=== PATIENT | male | born 1975 | race Caucasian/White ===

== ENCOUNTER 2021-08-08 13:09 | Emergency (ER) | payer SELFPAY ==
[2021-08-08 13:10] VITALS: BP 127/79; PULSE 75; RESP 18; TEMP 36.9; O2SAT 98; BMI 26.3
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
[2021-08-08] MEDS: Ketorolac 60 MG/2 ML Vial IM (14:14)
[2021-08-08] MEDS: Orphenadrine 60 MG/2 ML Ampul IM (14:15)
[2021-08-08 14:37] VITALS: BP 108/74; PULSE 62; RESP 15; O2SAT 98
== END 2021-08-08 14:38 | disposition home or self-care (01) ==
LOC: ED 14:07
PROVIDERS: Emergency Provider Emergency Medicine; Visit Provider Emergency Medicine
DX: S39.012A Strain of muscle, fascia and tendon of lower back, initial encounter (principal); M54.16 Radiculopathy, lumbar region; X50.1XXA Overexertion from prolonged static or awkward postures, initial encounter; Y93.E1 Activity, personal bathing and showering; F17.210 Nicotine dependence, cigarettes, uncomplicated
CPT/HCPCS: 96372; 99282

== ENCOUNTER → 2022-04-05 | Outpatient (CLI) | payer MEDICAID, SELFPAY ==
--- NOTE | 2022-04-05 07:00 | MRI_ITS ---
STUDY: MRI RIGHT KNEE REASON FOR EXAM: Male, 46 years old. RIGHT knee pain, decreased ROM, ?ACL/PCL tear TECHNIQUE: Standardized fat and water weighted pulse sequences were obtained in all 3 orthogonal planes. COMPARISON: X-ray of the right knee dated DECEMBER 07, 2014. MRI of the right knee dated December 29, 2014 FINDINGS: There is intra-substance myxoid degeneration of the posterior horn of the medial meniscus, but without a demonstrated meniscal tear. Normal anterior horn and body of the medial meniscus. There is diffuse, less than 50% thickness articular cartilage loss of the medial femorotibial compartment. A 2.26 cm developing osteochondral defect is present in the inner half of the medial femoral condyle with mild cortical irregularity and spurring and thinning of the overlying cartilage. There is also a crescentic subcortical sclerotic line in the region of developing osteochondral defect. Normal medial collateral ligamentous complex (MCL). Normal distal semimembranosus, gracilis and semitendinosus tendons. Normal lateral meniscus. Normal hyaline cartilage of the lateral femorotibial compartment. Normal lateral femoral condyle and tibial plateau. Normal proximal tibiofibular articulation. Normal lateral collateral (fibular) ligament. Normal popliteus tendon. Normal biceps femoris tendon. Normal anterior cruciate ligament (ACL). Normal posterior cruciate ligament (PCL). Normal congruent patellofemoral articulation. There is mild fissuring and thinning of the cartilage of the lateral patellar facet. Normal remaining cartilage of the patellofemoral compartment. Normal medial and lateral patellar retinaculum. Normal quadriceps tendon. Normal patellar tendon. Normal Hoffa''s fat pad. Small joint effusion noted. Reidentification of a 3.56 cm benign osteochondroma extending from the posterior aspect of the medial tibial plateau. A small loose body is present in the posterior aspect of the lateral tibial plateau. The soft tissues are unremarkable. The otherwise visualized osseous structures are unremarkable. MRI/Lower Ext Joint Only (Routine) IMPRESSION: 1. Intrasubstance degeneration of the posterior horn of medial meniscus without a tear 2. Mild fissuring and thinning of the cartilage over the lateral patellar facet 3. Small joint effusion 4. Reidentification of a 3.56 cm benign osteochondroma extending from the posterior aspect of the medial tibial plateau. 5. A 2.26 cm developing osteochondral defect is present in the inner half of the medial femoral condyle with mild cortical irregularity and spurring and thinning of the overlying cartilage. There is also a crescentic subcortical sclerotic line in the region of developing osteochondral defect. 6. A small loose body is present in the posterior aspect of the lateral tibial plateau. Electronically Signed: Dilip Hutchinson MD at 10:43 EDT ,
== END | disposition home or self-care (01) ==
PROVIDERS: Referring Provider Physician Assistant; Visit Provider Physician Assistant
DX: M25.561 Pain in right knee (principal)
CPT/HCPCS: 73721

== ENCOUNTER → 2022-05-08 | Outpatient (CLI) | payer MEDICAID, SELFPAY ==
--- NOTE | 2022-05-08 09:01 | EKG12_ITS ---
Test Reason : PREOP Blood Pressure : / mmHG Vent. Rate : 047 BPM Atrial Rate : 047 BPM P-R Int : 156 ms QRS Dur : 094 ms QT Int : 456 ms P-R-T Axes : 015 014 058 degrees QTc Int : 403 ms Sinus bradycardia Otherwise normal ECG Confirmed by MARCK HALL, BENITEZ ([id number]), video news editor CHASE BOGGS ([id number]) on 05/08/2022 2:37:27 PM Referred By: Abdoul Vazquez Confirmed By:BENITEZ ACHARYA MD
[2022-05-08 09:51] LABS: Hematocrit 46.5 % (40-54); Hemoglobin 16.5 g/dL (13.0-16.5); Mean Corp Hgb Conc 35.5 g/dL (32-36); Mean Corpuscular Hgb 33.3 pg (27.0-32.0); Mean Corpuscular Volume 93.9 fL (80-94); Platelet Count 207 K/mm3 (150-450); RBC Distribution Width CV 14.1 % (11.6-14.6); Red Blood Count 4.95 M/mm3 (4.6-6.2); White Blood Count 7.2 K/mm3 (4.4-11.0)
[2022-05-08 10:22] LABS: Anion Gap 6 (5-15); BUN 10 mg/dL (7-18); BUN/Creat Ratio 8.8 RATIO (10-20); Calcium,Total 8.9 mg/dL (8.5-10.1); Chloride 104 mmol/L (98-107); Creatinine, Serum 1.13 mg/dL (0.70-1.30); EST Glomerular Filtration Rate 74 mL/min (>60); Est Glom Filt Rate - Afr Amer 89 mL/min (>60); Glucose 123 mg/dL (74-106); Potassium 4.1 mmol/L (3.5-5.1); Sodium Level 136 mmol/L (136-145)
== END | disposition home or self-care (01) ==
LOC: PSN 08:53
PROVIDERS: Referring Provider Student in an Organized Health Care Education/Training Program; Visit Provider Student in an Organized Health Care Education/Training Program
DX: Z01.818 Encounter for other preprocedural examination (principal); Z01.810 Encounter for preprocedural cardiovascular examination; R00.0 Tachycardia, unspecified
CPT/HCPCS: 36415; 80048; 85027; 93005

== ENCOUNTER → 2022-05-27 | Outpatient (CLI) | payer MEDICAID, SELFPAY ==
--- NOTE | 2022-05-27 14:34 | VDLE_ITS ---
Reason For Study: RLE effusion RIGHT GSV is normal. CFV is compressible, spontaneous, phasic, competent and demonstrates normal augmentation. FV is compressible, spontaneous, phasic, competent and demonstrates normal augmentation. POP V is compressible, spontaneous, phasic, competent and demonstrates normal augmentation. T/P Trunk is compressible. PTV is compressible. RT PerV is compressible. Procedure This is a venous duplex using B-mode, color flow and spectral Doppler. Exam performed in department. The exam was diagnostic. A preliminary report was called and/or faxed to Dr. Vazquez @ [phone] @ [facility]. VL/Venous Duplex US, Unilateral Interpretation Summary Deep veins of the right lower extremity are patent and compressible segmentally . There is no evidence of right lower extremity deep vein thrombosis. The right great [place] us vein appears patent and compressible segmentally. Ordering Physician: Abdoul Vazquez Referring Physician: NO PCP Performed By: Betsy Hernández, SCAR, RVT
== END | disposition home or self-care (01) ==
PROVIDERS: Referring Provider Student in an Organized Health Care Education/Training Program; Visit Provider Student in an Organized Health Care Education/Training Program
DX: M25.461 Effusion, right knee (principal)
CPT/HCPCS: 93971

== ENCOUNTER 2024-02-24 16:47 | Emergency (ER) | payer SELFPAY ==
[2024-02-24 16:47] VITALS: BP 150/88; PULSE 52; RESP 18; TEMP 36.9; O2SAT 98; BMI 25.0
[2024-02-24 17:30] LABS: Absolute Lymphocyte Count 3.53 X10^3/uL (0.83-4.51); Absolute Neutrophil Count 3.8 X10^3/uL (2.0-7.7); Basophil# 0.05 X10^3/uL; Basophil% 0.6 % (0-1); Eosinophil# 0.14 X10^3/uL; Eosinophils% 1.7 % (0-5); Hemoglobin 14.7 g/dL (13.0-16.5); Lymphocyte # 3.53 X10^3/ul (0.83-4.51); Lymphocyte % 42.6 % (19-41); Mean Corpuscular Hgb 31.5 pg (27.0-32.0); Mean Corpuscular Volume 90.1 fL (80-94); Mean Platelet Vol. 9.7 fl (6.2-12.0); Monocyte# 0.75 X10^3/uL; NRBC Flagged by Analyzer 0 % (0-5); Neutrophil % 45.9 % (47-70); Platelet Count 201 K/mm3 (150-450); RBC Distribution Width CV 12.7 % (11.6-14.6); RBC Distribution Width SD 41.6 fl (35.1-43.9); Red Blood Count 4.66 M/mm3 (4.6-6.2); White Blood Count 8.3 K/mm3 (4.4-11.0)
[2024-02-24 17:46] LABS: AST(SGOT) 17 U/L (15-37); Alanine Aminotransfer ALT/SGPT 20 U/L (16-61); Albumin, Serum 3.8 g/dL (3.2-5.0); Alkaline Phosphatase 77 U/L (45-117); Anion Gap 6 (5-15); BUN 12 mg/dL (7-18); BUN/Creat Ratio 10.4 RATIO (10-20); Calcium,Total 9.1 mg/dL (8.5-10.1); Chloride 107 mmol/L (98-107); Creatinine, Serum 1.15 mg/dL (0.70-1.30); EST Glomerular Filtration Rate 72 mL/min (>60); Est Glom Filt Rate - Afr Amer 87 mL/min (>60); Estimated Creatinine Clearance 74.35 ml/min; Globulin 3.8 g/dL (2.2-4.2); Glucose 95 mg/dL (74-106); Potassium 3.9 mmol/L (3.5-5.1); Protein, Total 7.6 g/dL (6.4-8.2); Sodium Level 140 mmol/L (136-145)
--- NOTE | 2024-02-24 19:31 | CT_ITS ---
STUDY: CT ABDOMEN AND PELVIS WITH CONTRAST REASON FOR EXAM: Male, 48 years old. Right sided pain, GI bleeding RADIATION DOSAGE (If Supplied By Facility): CTDIvol = ( 13.65 ) mGy, DLP = ( 448.85 ) mGycm TECHNIQUE: Transaxial images were obtained from the dome of the diaphragm to the symphysis pubis without oral contrast. IV 100mL Isovue-370 was administered. Sagittal and coronal images were reconstructed. Individualized dose optimization techniques were used for this CT. COMPARISON: None. FINDINGS: The visualized lung bases are unremarkable. The visualized portions of the heart are within normal limits. Normal liver. Gallbladder not visualized consistent with cholecystectomy Normal spleen. Normal pancreas. Normal bilateral adrenal glands. Normal right kidney. Normal left kidney. Mild nonspecific concentric thickening of the [place] of stomach and thickening of the mucosal folds of several loops of small bowel which may be consistent with nonspecific gastroenteritis . No evidence for small bowel obstruction Normal colon. The appendix is visualized and appears normal. Site of intraluminal hemorrhage not visualized at this time. Normal abdominal aorta. Normal inferior vena cava. Normal retroperitoneum. Mild nonspecific bladder distention Small fat-containing left inguinal hernia. Lumbar spine demonstrates mild degenerative change. CT/Abdomen/Pelvis W IV Cont ONLY IMPRESSION: Findings which may be consistent with nonspecific gastroenteritis. No evidence for small bowel obstruction, acute appendicitis or other acute abnormality status post cholecystectomy. No definitive evidence for intraluminal GI hemorrhage at this time. However radionuclide tagged red blood cell study would be helpful for further evaluation if indicated Electronically Signed: Kun Lucero MD at 20:49 EDT ,
--- NOTE | 2024-02-24 19:31 | ED.VIS.GI ---
HPI HPI - GI History of Present Illness Chief Complaint: GI Bleed Narrative Narrative: 48-year-old male who denies significant past medical history presents with GI bleeding/rectal bleeding for the last few months. He also endorses fatigue and generalized weakness. He denies any other bleeding diathesis, he does not take blood thinners, no significant past medical history except for cholecystectomy. He states that it seems like every time he has a bowel movement, there is a large amount of blood at least on the toilet paper. Sometimes, he will not have dark or tarry stool, but he will have loose stool and notices blood in the toilet bowl. He states that over the last few weeks he is felt very weak and tired as well. He has had decreased appetite and his states that he is lost 20 pounds in 1 month. [facility] Medical History Cholecystectomy planned Back injury Home Medications ?Medication ?Instructions ?Recorded ?Last Taken ?Type NK 02/24/24 Unknown History Allergy/AdvReac Type Severity Reaction Status Date / Time No Known Allergies Allergy Verified 02/24/24 16:47 Social History (Updated 02/24/24 @ 20:47 by Susanna Jim) household members: spouse Smoking Status: Current every day smoker tobacco type: cigarettes ROS ROS ED ROS Narrative Constitutional: No fever, no chills. Generalized weakness. Decreased appetite. HEENT: No sore throat. No neck pain. No loss of vision. No rhinorrhea. Cardiovascular: No chest pain. No palpitations. No pedal edema. Respiratory: No cough, no shortness of breath. Abdominal: Left-sided abdominal pain. No nausea. No vomiting. No hematemesis. Positive bloody bowel movements. Genitourinary: No dysuria. No hematuria. Musculoskeletal: No myalgias. No arthralgias. Neurologic: No headaches. No dizziness. No lightheadedness. Skin: No rash. No change in color. Psychiatric: No depression. No anxiety. EXAM Physical Exam Narrative Exam Narrative: Afebrile. Vital signs noted. HEENT: Normocephalic. Atraumatic. PERRL, EOMI. Neck soft and supple. No point tenderness or step off. Cardiovascular: Regular rate and rhythm. No murmurs, rubs, or gallops appreciated. Respiratory: No tachypnea. Lungs clear to auscultation bilaterally. Gastrointestinal: Abdomen soft, nontender except mild tenderness left flank, with normoactive bowel sounds. No rebound or guarding. Neurological: Awake. Alert. Nonfocal, nonlateralizing. Skin: No rash. Normal color. No pallor. Musculoskeletal: No pedal edema. Full range of motion extremities. Const Vital Signs: 02/24/24 16:47 02/24/24 19:55 02/24/24 21:00 Temperature 98.5 F Temperature Source Temporal Pulse Rate 52 L 50 L 68 Respiratory Rate 18 16 Blood Pressure 150/88 H 130/81 H 129/81 H Blood Pressure Mean 108 97 97 Pulse Ox 98 97 97 Oxygen Delivery Method Room Air Room Air Room Air 02/24/24 21:16 Temperature 98 F Temperature Source Pulse Rate 68 Respiratory Rate 18 Blood Pressure 129/81 H Blood Pressure Mean 97 Pulse Ox 98 Oxygen Delivery Method MDM MDM MDM Narrative Medical decision making narrative: Differential diagnosis includes diverticular bleeding versus rectal bleeding from hemorrhoid versus AV malformation versus colonic mass. There is no pallor on exam so I have low concern for anemia. Initial protocol labs were obtained and reviewed and he has normal white count of 8.3 with hemoglobin normal at 14.7, hematocrit 42.0, platelet count normal at 201. Electrolyte panel is negative for dehydration or electrolyte abnormality with a normal sodium of 140 and potassium 3.9, chloride 107 with BUN of 12 and creatinine 1.15, glucose appropriately elevated at 95. I do feel CT imaging is indicated to rule out mass. Chaperoned rectal examination will be performed as well. Chaperoned rectal examination revealed no gross blood, there was a small amount of normal colored stool. I reviewed the laboratory work and it is Hemoccult positive. However, he has a normal hemoglobin here. I reviewed the radiology report of the CT of the abdomen and pelvis which shows no acute process, no appendicitis, no mass. At this point in time, I do not feel he requires observation or admission. I am unsure as to the cause of his Hemoccult stool, but recommended that he follow-up with gastroenterology and/or a primary care provider. I feel he be discharged to follow-up. Return instructions to the emergency department were reviewed. Disposition is discharged home in stable condition. History & Record Review Discussion w/independent historian: Patient and Family Lab Data Attestation: I reviewed the patient's lab results. Labs: Laboratory Results - last 24 hr 02/24/24 02/24/24 17:20 20:55 WBC 8.3 RBC 4.66 Hgb 14.7 Hct 42.0 MCV 90.1 MCH 31.5 MCHC 35.0 RDW Std Deviation 41.6 RDW Coeff of Elizabeth 12.7 Plt Count 201 MPV 9.7 Immature Gran % (Auto) 0.200 Neut % (Auto) 45.9 L Lymph % (Auto) 42.6 H [place] % (Auto) 9.0 Eos % (Auto) 1.7 Baso % (Auto) 0.6 Absolute Neuts (auto) 3.8 Absolute Lymphs (auto) 3.53 Nucleated RBC % 0 Sodium 140 Potassium 3.9 Chloride 107 Carbon Dioxide 27.0 Anion Gap 6 BUN 12 Creatinine 1.15 Estim Creat Clear Calc 74.35 Est GFR (MDRD) Af Amer 87 Est GFR (MDRD) Non-Af 72 BUN/Creatinine Ratio 10.4 Glucose 95 Calcium 9.1 Total Bilirubin 0.30 AST 17 ALT 20 Alkaline Phosphatase 77 Total Protein 7.6 Albumin 3.8 Globulin 3.8 Albumin/Globulin Ratio 1.0 Urine Color Yellow Urine Clarity Clear Urine pH 7.0 Ur Specific [place] 1.015 Urine Protein Negative Urine Glucose (UA) Normal Urine Ketones Negative Urine Occult Blood Negative Urine Nitrite Negative Urine Bilirubin Negative Urine Urobilinogen Normal Ur Leukocyte Esterase Negative Radiography Diagnostic Testing: Clinical Impression(s) from Imaging Studies Abdomen/Pelvis CT 02/24/24 19:31 IMPRESSION: Findings which may be consistent with nonspecific gastroenteritis. No evidence for small bowel obstruction, acute appendicitis or other acute abnormality status post cholecystectomy. No definitive evidence for intraluminal GI hemorrhage at this time. However radionuclide tagged red blood cell study would be helpful for further evaluation if indicated Electronically Signed: Kun Lucero MD at 20:49 EDT , Discharge Plan Triage Chief Complaint: GI Bleed Other Complaint: Diarrhea ED Provider: Ruslan Lay Dx/Rx/DC Orders Clinical Impression: GI bleeding, Abdominal pain Instructions: GI Bleeding Causes and Tests, ED Lower GI Bleeding (Stable), ED Abdominal Pain Unkn Cause Male... Prescriptions: No Action NK Primary Care Provider: Care Physician,No Primary Referrals: Giovanni Sneed MD [Med Staff - Active Staff] - As soon as possible Friend,DO Elie [Med Staff - Active Staff] - As soon as possible Care Physician,No Primary [Primary Care Provider] - Activity Restrictions/Additional Instructions: Return to the emergency department with increased rectal bleeding, new or worsening symptoms. Print Language: Romanian Disposition Disposition: Home, Self Care
[2024-02-24 19:55] VITALS: BP 130/81; PULSE 50; RESP 16; O2SAT 97
[2024-02-24 21:00] VITALS: BP 129/81; PULSE 68; O2SAT 97
[2024-02-24 21:00] LABS: Bacteria 0 SEEN /hpf (None Seen); Mucous, Urine 0 SEEN /hpf (<or=2+); Red Blood Cells-Urine 0 SEEN /hpf (0-5); Squamous Epithelial Cells - UA 0 SEEN /hpf (0-5)
[2024-02-24 21:09] LABS: Color, Urine Yellow (Yellow); Glucose, Dipstick Normal (Normal); Ketone-Dipstick Negative (Negative); Leukocyte Esterase-Dipstick Negative /ul (Negative); Nitrite-Dipstick Negative (Negative); Occult Blood-Urine Negative /ul (Negative); Protein-Dipstick Negative (Negative); Specific Gravity, Urine 1.015 (1.002-1.030); Urine Bilirubin Dipstick Negative (Negative); Urine Clarity Clear (Clear); Urine Urobilinogen Normal (Normal)
[2024-02-24 21:16] VITALS: BP 129/81; PULSE 68; RESP 18; TEMP 36.6; O2SAT 98
[2024-02-24 21:18] LABS: White Blood Cells 0 SEEN /hpf (0-5)
== END 2024-02-24 21:33 | disposition home or self-care (01) ==
PROVIDERS: Emergency Provider Emergency Medicine; Visit Provider Emergency Medicine
DX: K92.2 Gastrointestinal hemorrhage, unspecified (principal); R19.7 Diarrhea, unspecified; R10.9 Unspecified abdominal pain; F17.210 Nicotine dependence, cigarettes, uncomplicated; Z90.49 Acquired absence of other specified parts of digestive tract
CPT/HCPCS: 74177; 80053; 81001; 82274; 85025; 99282; Q9967; A4216

== ENCOUNTER → 2024-03-01 | Outpatient (CLI) | payer SELFPAY ==
[2024-03-01 09:59] LABS: Absolute Lymphocyte Count 2.33 X10^3/uL (0.83-4.51); Absolute Neutrophil Count 2.3 X10^3/uL (2.0-7.7); Basophil# 0.03 X10^3/uL; Basophil% 0.6 % (0-1); Eosinophil# 0.12 X10^3/uL; Eosinophils% 2.3 % (0-5); Hematocrit 44.8 % (40-54); Hemoglobin 15.1 g/dL (13.0-16.5); Lymphocyte # 2.33 X10^3/ul (0.83-4.51); Lymphocyte % 43.9 % (19-41); Mean Corp Hgb Conc 33.7 g/dL (32-36); Mean Corpuscular Hgb 31.2 pg (27.0-32.0); Mean Corpuscular Volume 92.6 fL (80-94); Mean Platelet Vol. 9.3 fl (6.2-12.0); Monocyte# 0.48 X10^3/uL; NRBC Flagged by Analyzer 0 % (0-5); Neutrophil # 2.34 X10^3/uL (2.7-7.7); Platelet Count 216 K/mm3 (150-450); RBC Distribution Width CV 12.6 % (11.6-14.6); RBC Distribution Width SD 43.3 fl (35.1-43.9); Red Blood Count 4.84 M/mm3 (4.6-6.2); White Blood Count 5.3 K/mm3 (4.4-11.0)
== END | disposition home or self-care (01) ==
DX: K92.2 Gastrointestinal hemorrhage, unspecified (principal)
CPT/HCPCS: 36415; 85025

== ENCOUNTER 2024-03-31 05:28 | Day surgery (SDC) | payer SELFPAY ==
[2024-03-31] VITALS (9 sets, daily range): BP systolic 84–112; BP diastolic 54–75; PULSE 44–65; RESP 16–18; TEMP 36.2–36.6; O2SAT 95–99; BMI 24.5
--- NOTE | 2024-03-31 06:24 | PCM.PRE.AN2 ---
ASA Classification* ASA Classification ASA Classification: 2 Assessment & Plan Anesthesia* Anesthesia Assessment Anesthesia Assessment: Discussed sedation and/or anesthesia options, risks, benefits, and alternatives with patient/parents/legal guardian/POA. Questions invited. The patient/parents/legal guardian/POA seems to understand and agrees to proceed with anesthesia plan. Reviewed the physical assessment, medical history, allergy history and patient home medications list prior to surgery/procedure/anesthetic and documented any changes. Performed airway and anesthesia risk assessments. Anesthesia Type Anesthesia Type: MAC History Source History Obtained from:: Patient and Chart Anesthesia Focused Assessment* Temperature: 98 F Pulse Rate: 50 Blood Pressure: 100/68 Respiratory Rate: 16 Pulse Ox: 98 Airway Assessment Mouth opens: >3 cm Mallampati Score: II Teeth Condition: Missing Neck Range of motion (ROM): Full ROM Focused Labs Anesthesia Preop lab: CBC WBC 5.3 K/mm3 (4.4-11.0) 03/01/24 09:43 RBC 4.84 M/mm3 (4.6-6.2) 03/01/24 09:43 Hgb 15.1 g/dL (13.0-16.5) 03/01/24 09:43 Hct 44.8 % (40-54) 03/01/24 09:43 Plt Count 216 K/mm3 (150-450) 03/01/24 09:43 CHEMISTRY Potassium 3.9 mmol/L (3.5-5.1) 02/24/24 17:20 Sodium 140 mmol/L (136-145) 02/24/24 17:20 BUN 12 mg/dL (7-18) 02/24/24 17:20 Creatinine 1.15 mg/dL (0.70-1.30) 02/24/24 17:20 Glucose 95 mg/dL (74-106) 02/24/24 17:20 TSH 1.12 uIU/mL (0.358-3.74) 01/30/16 13:54 COAG Pre-Assessment Diagnosis/Proposed Procedure Planned Operative Procedure(s): Colonoscopy,EGD Anesthesia History 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 When Was Last Pacemaker Check QUESTION #4 FULL TEXT: You/Your Family Experience fever (hyperthermia) with Anesthesia Last Oral Intake Last Oral intake: Last Oral Intake NPO since 05:00 03/31/24 06:02 Meds taken in AM with sips of water? Meds patient instructed to take am of surgery PONV PONV - medical equipment repairer: PONV - medical equipment repairer Female No 03/24/24 10:21 HX of Motion Sickness No 03/24/24 10:21 HX of N/V After Surgery No 03/24/24 10:21 Non-Smoker No 03/24/24 10:21 Duration of Surgery greater No 03/24/24 10:21 than 60 minutes Number of Risk Factors PONV Score Any additional information?: No Height & Weight Height & Weight: Anesthesia: Height & Weight Height 5 ft 8 in 03/31/24 06:02 Weight: 73 kg 03/31/24 06:02 Body Mass Index (BMI) 24.5 03/31/24 06:02 Respiratory Assessment Respiratory Assessment - medical equipment repairer: Respiratory Tract Infection Hx - medical equipment repairer Hx Respiratory Tract Infection No 03/24/24 10:21 Any additional information?: No STOP Sleep Apnea STOP Sleep Apnea - medical equipment repairer: STOP Sleep Apnea - medical equipment repairer Hx Hypertension No 03/24/24 10:21 Hx Sleep Apnea No 03/24/24 10:21 CPAP BIPAP Do you snore loudly (louder No 03/24/24 10:21 than talking or can be heard Do you often feel tired/ No 03/24/24 10:21 fatigued/ sleepy during daytime? Has anyone observed you stop No 03/24/24 10:21 breathing during sleep? STOP Results Negative 03/24/24 10:21 QUESTION #5 FULL TEXT : Do you snore loudly (louder than talking or can be heard through closed doors)? 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 Specify any problems Hx of Preganancy in last 3 N/A 03/24/24 10:21 Months Nurse Filling Out Transfusion VCHRISTIN 03/24/24 10:21 & Questions: Date: 03/24/24 03/24/24 10:21 Time: 10:22 03/24/24 10:21 Patient unable to answer at this time (ie. confused, unrespo Any additional information?: No /Reproduction History /Reproductive History - medical equipment repairer: /Reproductive Hx- medical equipment repairer Hx Now Gestational Age (in weeks): EDC: Hx Hx Para Hx Section SAB Any additional information?: No PFSH Medical History Wears dentures Wears glasses Depression History of steroid therapy Arthritis Back pain Migraine headache Injury of head and neck History of GI bleed Smoker History of pain when walking Coma Chest pain Cholecystectomy planned Back injury Home Medications ?Medication ?Instructions ?Recorded ?Last Taken ?Type ascorbate calcium (vitamin C) 500 500 mg PO QDAY 03/01/24 Unknown History mg tablet multivitamin 1 tab PO QAM 03/01/24 Unknown History prednisone 10 mg tablet 10 mg PO BID #24 tabs 03/11/24 Unknown Rx Allergy/AdvReac Type Severity Reaction Status Date / Time No Known Allergies Allergy Verified 03/31/24 05:57 Family History Mother Arthritis Hypertension Father Arthritis Bleeding disorder Heart disease Uncle Colon cancer Surgical History Hx of eye surgery H/O shoulder surgery H/O knee surgery History of cholecystectomy Social History household members: spouse Smoking Status: Current every day smoker tobacco type: cigarettes Review of Systems (Anesthesia) ROS Narrative System reviewed and no additional complaints, except as documented.
--- NOTE | 2024-03-31 06:30 | PCM.HP.BLA ---
History and Physical Date of Admission: 03/31/24 OJ DENIS, is a 48 M who presents to the office today for establishment with [facility] for complaints of rectal bleeding and weight loss of 20 pounds in less than a month. Reports last colonoscopy at 38 yrs old, only internal hemorrhoids found at that time. 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 Denies other tobacco use, but does admit to marijuana use on occasion. Denies productive cough, change in phlegm, fever, chills, nausea, vomiting. Reports poor appetite with more than 20 pound involuntary weight loss. Denies anhedonia, depression and anxiety. Reports keeping up with 20yr olds at work. Reports brighter red blood while wiping after BM started 2 months ago; states mother has history of multiple polyps removed but no cancer. Reports on several occasions has has very large amounts of blood in toilet with foul smell. Visit to emergency department on 02/24/24 for this concern, found his hemoglobin level stable and no external signs of bleeding or hemorrhoids on exam, abdominal/pelvis CT found nonspecific gastroenteritis, then sent home. Reports lower abdominal painful cramping after eating, but timing varies. States that when cramping occurs he has a short time to get to the restroom and then will have episodes of bloody diarrhea. States painful cramping dissipates after BM. Reports increasing fatigue and weakness. Denies seeing blood in urine, urinalysis in ER was negative. Denies feeling lightheaded or dizzy when changing positions, denies feeling short of breath. ROS Const Constitutional: Positive for anorexia, fatigue, headache(s), decreased energy, weight change and change in appetite; No body ache, chills, excessive sweating, fever(s), frequent falls, malaise, night sweats, snoring, weakness, sleep problems or abnormal sleep pattern Eyes Eyes: No change in vision ENT ENT: Positive for headache(s); No abnormal hearing or difficulty swallowing Resp Respiratory: No change in phlegm color or snoring Cardio Cardiology: No excessive sweating Gastro GI: Positive for abdominal pain, change in bowel habits, cramping, diarrhea and Blood in stool; No belching, bloating, change in stool character, coffee ground emesis, constipation, heartburn, difficulty swallowing, feeling full early, excessive flatus, incontinent of stools, Vomiting blood/hematemesis, loose stools, Black,tarry stools, nausea/dyspepsia, pain with swallowing, vomiting or other Genitourinary Male: No difficulty urinating Musc Musculoskeletal: Positive for joint pain, back pain, joint swelling, muscle cramps, muscle weakness, numbness, tingling, Arthritis and leg pain at night Skin Skin: No yellowing of the eye or itchy eyes Neuro Neurology: Positive for headache(s), numbness and tingling; No abnormal hearing, weakness or frequent falls Psych Psychiatric: No abnormal sleep pattern, No lack of enjoyment, Positive for anxiety, Positive for change in appetite and No depression Endo Endocrine: Positive for change in body appearance, fatigue and weight change; No cold intolerance, excessive sweating, heat intolerance, increased thirst/drinking or increased hunger Aller/Imm Allergy/Immunologic: No food intolerance or itchy eyes Hiren/Lymp Hematologic/Lymphatic: No easy bleeding or easy bruising Exam Const General: cooperative and no acute distress Nutritional Appearance: average body habitus Orientation: alert and awake [facility] Head: normal to inspection Ears: hearing grossly normal bilaterally Nose: external nose normal Face and sinus: normal facial exam and face symmetric Teeth and gingiva: dentures Eyes General: appearance normal, both eyes and all related structures Neck Neck: normal visual inspection and full ROM Neck mass: No Chest Chest palpation & inspection: normal inspection of the chest Resp Effort & Inspection: normal respiratory effort, able to speak in complete sentences and symmetric chest movement GI Inspection: normal to inspection Auscultation: high-pitched sounds and hyperactive bowel sounds Palpation: soft and no hepatosplenomegaly Skin General: no rashes or lesions noted Neuro General: patient alert, patient awake and patient oriented x3 Cognition: normal cognition Speech: speech normal Gait: normal gait Motor: muscle tone normal throughout Extrem General: normal to inspection and full ROM Psych Appearance: well kempt Mental Status: mental status grossly normal Mood: congruent mood Affect: normal affect Speech and Movement: speech and movement normal Attitude: cooperative Thought Process: normal Judgment: judgment good Assessment and Plan Assessment and Plan (1) Rectal hemorrhage: Plan: OJ DENIS, is a 48 M who presents to the office today for establishment with [facility] for complaints of rectal bleeding and weight loss of 20 pounds in less than a month. Differential diagnoses include: gastritis, peptic ulcer, IBS-D, IBD, hemorrhage of internal hemorrhoid. order CBC to assess anemia order EGD for alarming involuntary weight loss order colonoscopy to assess location of rectal hemorrhage will assess IBD and IBS-d at a later date per his request call with results Orders: Orders CBC W/Diff, Automated Today K92.2 - Gastrointestinal hemorrhage, unspecified I have examined the patient and the H&P has been reviewed. There are no clinical changes since date of exam.
--- NOTE | 2024-03-31 06:30 | COLBX_PTH ---
PATIENT: OJ DENIS LOC: [facility] U#:[id number] AGE/SX: 48/M ROOM: RE03/31/[address]: Dr. Elie Galloway DO : 1975 BED: DIS: 03/31/2024 SPEC #: [id number] RECD: 03/31/24 11:20 STATUS: TIANNA NADEGE #: [id number] MARCO: 03/31/24 06:[address]: Elie Galloway DEPT: SURGICAL PATHOLOGY RECD BY: Arin Medel ENTERED: 03/31/24 13:23 SP TYPE: COLON BX OTHR DR: Michelle Primary Care Phys Tissues: A - Duodenum, NOS B - Esophagus, NOS C - Ileum, NOS D - COLON BIOPSY E - COLON BIOPSY F - Descending colon Procedures: Special Stain Group I Surgery Specimen Level IV Alcian Blue/PAS (control) HEADER OPERATION: Colonoscopy, EGD biopsy PRE-OP DIAGNOSIS: Rectal bleeding, weight loss TISSUE SUBMITTED: A- Duodenum biopsy, B- Distal esophagus biopsy, C- Terminal ileum biopsy, D- Random colon biopsy, E- Splenic flexure polyp, F- Descending colon polyp biopsy MICROSCOPIC DIAGNOSIS A. Duodenum, biopsy: Fragments of duodenal mucosa, no pathologic diagnosis. B. Distal esophagus, biopsy: Fragments of gastroesophageal mucosa with chronic inflammation. Intestinal metaplasia (goblet cell metaplasia) not identified. See comment. C. Terminal ileum, biopsy: Fragments of small intestinal mucosa, no pathologic diagnosis. D. Colon, random biopsy: Fragments of colonic mucosa, no pathologic diagnosis. E. Splenic flexure polyp, biopsy: Tubular adenoma. F. Descending colon, biopsy: Tubular adenoma. 04/01/2024 COMMENT B. Alcian blue/PAS stain with matched control is used in the evaluation of the specimen. MICROSCOPIC DESCRIPTION Slides are reviewed. GROSS DESCRIPTION A. Received in fixative is one container labeled with the patient's name and designated Duodenum biopsy. The specimen consists of two irregular fragments of light ramirez soft tissue that in aggregate measure 1.0 x 0.3 x 0.1 cm. The specimen is totally submitted in one cassette. B. Received in fixative is one container labeled with the patient's name and designated Distal esophagus biopsy. The specimen consists of multiple irregular fragments of light ramirez soft tissue that in aggregate measure 0.7 x 0.5 x 0.1 cm. The specimen is totally submitted in one cassette. C. Received in fixative is one container labeled with the patient's name and designated Terminal ileum biopsy. The specimen consists of two irregular fragments of light ramirez soft tissue that in aggregate measure 0.6 x 0.4 x 0.1 cm. The specimen is totally submitted in one cassette. D. Received in fixative is one container labeled with the patient's name and designated Random colon biopsy. The specimen consists of multiple irregular fragments of light ramirez soft tissue that in aggregate measure 1.5 x 0.4 x 0.1 cm. The specimen is totally submitted in one cassette. E. Received in fixative is one container labeled with the patient's name and designated Splenic flexure polyp. The specimen consists of a ramirez-pink polyp measuring 1.3 x 0.5 x 0.5cm. The presumed base is inked. The polyp is bisected and submitted entirely in one cassette. F. Received in fixative is one container labeled with the patient's name and designated Descending colon polyp biopsy. The specimen consists of one irregular fragment of light ramirez soft tissue that measures 0.3 x 0.3 x 0.1 cm. The specimen is totally submitted in one cassette. SJ 03/31/2024 TC:1 CPT:[id number]
--- NOTE | 2024-03-31 07:24 | PCM.POST.ANE ---
Anesthesia: Postop Eval I Current Vital Signs Temperature: 97.2 F Pulse Rate: 65 Blood Pressure: 100/72 Respiratory Rate: 18 Pulse Ox: 96 Assessment Airway patent: Yes Spontaneous unlabored respirations: Yes nausea: No Vomiting: No Anesthesia Complication: No Fluid Hydration Crystalloid volume administer (ml): 40 Total IV fluid infused: 40 Progress Note Anesthesia document: Postop Eval 1 completed: Yes
--- NOTE | 2024-03-31 07:28 | OP.EGD_ITS ---
Patient Name: Baldev Esqueda Procedure Date: 03/31/2024 6:25 AM Date of : 1975 Age: 48 Procedure: Upper GI endoscopy Indications: Epigastric abdominal pain, Functional Dyspepsia Providers: Elie Galloway DO Referring MD: Elie Galloway DO Medicines: Monitored Anesthesia Care Patient Profile: This is a 48 year old male. Refer to note in patient chart for documentation of history and physical. Patient has symptoms of chronic nausea. Complications: No immediate complications. Procedure: Pre-Anesthesia Assessment: - Prior to the procedure, a History and Physical was performed, and patient medications and allergies were reviewed. The patient is competent. The risks and benefits of the procedure and the sedation options and risks were discussed with the patient. All questions were answered and informed consent was obtained. Patient identification and proposed procedure were verified by the physician. Mental Status Examination: alert and oriented. Airway Examination: normal oropharyngeal airway and neck mobility. Respiratory Examination: clear to auscultation. CV Examination: normal. Prophylactic Antibiotics: The patient does not require prophylactic antibiotics. Prior Anticoagulants: The patient has taken no anticoagulant or antiplatelet agents. ASA Grade Assessment: II - A patient with mild systemic disease. After reviewing the risks and benefits, the patient was deemed in satisfactory condition to undergo the procedure. The anesthesia plan was to use monitored anesthesia care (MAC). Immediately prior to administration of medications, the patient was re-assessed for adequacy to receive sedatives. The heart rate, respiratory rate, oxygen saturations, blood pressure, adequacy of pulmonary ventilation, and response to care were monitored throughout the procedure. The physical status of the patient was re-assessed after the procedure. After obtaining informed consent, the endoscope was passed under direct vision. Throughout the procedure, the patient's blood pressure, pulse, and oxygen saturations were monitored continuously. The colonoscope was introduced through the mouth, and advanced to the second part of duodenum. The upper GI endoscopy was accomplished without difficulty. The patient tolerated the procedure well. Scope In: 6:52:25 AM Scope Out: 6:58:00 AM Total Procedure Duration Time 0 hours 5 minutes 35 seconds Findings: There were esophageal mucosal changes suspicious for short-segment Ceron's esophagus present in the lower third of the esophagus. The maximum longitudinal extent of these mucosal changes was 3 cm in length. Mucosa was biopsied with a cold forceps for histology in 4 quadrants at intervals of 1 cm in the lower third of the esophagus. One specimen bottle was sent to pathology. Verification of patient identification for the specimen was done. Estimated blood loss was minimal. A hiatal hernia was present. No other significant abnormalities were identified in a careful examination of the stomach. Patchy mild inflammation characterized by granularity was found in the duodenal bulb. Biopsies were taken with a cold forceps for histology. Verification of patient identification for the specimen was done. Estimated blood loss was minimal. 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 Biopsied. - Hiatal hernia. - Chronic duodenitis. Biopsied. Recommendation: - Discharge patient to home. - Resume previous diet. - Continue present medications. Procedure Code(s): --- Professional --- 84433, Esophagogastroduodenoscopy, flexible, transoral; with biopsy, single or multiple CPT copyright 2021 [employer]. All rights reserved. The codes documented in this report are preliminary and upon admissions representative review may be revised to meet current compliance requirements. Elie Galloway DO 03/31/2024 7:27:28 AM This report has been signed electronically. Number of Addenda: 0 Note Initiated On: 03/31/2024 6:25 AM
--- NOTE | 2024-03-31 07:28 | OP.CCLET_ITS ---
03/31/2024 No Primary Care Physician Re : Upper GI endoscopy procedure for Baldev Esqueda Dear Care Physician This procedure was performed on Sunday, March 31, 2024. 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 Biopsied. - Hiatal hernia. - Chronic duodenitis. Biopsied. Recommendations : - Discharge patient to home. - Resume previous diet. - Continue present medications. My findings are described in the full procedure note, which is enclosed. If I can be of further assistance, please feel free to contact me at . Sincerely, Elie Galloway, 03/31/2024 7:27:28 AM This report has been signed electronically.
--- NOTE | 2024-03-31 07:32 | OP.COLON_ITS ---
Patient Name: Baldev Esqueda Procedure Date: 03/31/2024 6:58 AM Date of : 1975 Age: 48 Procedure: Colonoscopy Indications: Screening for colorectal malignant neoplasm Providers: Elie Galloway DO Referring MD: Elie Galloway DO Medicines: Monitored Anesthesia Care Patient Profile: This is a 48 year old male. Refer to note in patient chart for documentation of history and physical. Patient has symptoms of chronic nausea. Last Colonoscopy: none. The patient's first colonoscopy is today. Complications: No immediate complications. Procedure: Pre-Anesthesia Assessment: - Prior to the procedure, a History and Physical was performed, and patient medications and allergies were reviewed. The patient is competent. The risks and benefits of the procedure and the sedation options and risks were discussed with the patient. All questions were answered and informed consent was obtained. Patient identification and proposed procedure were verified by the physician. Mental Status Examination: alert and oriented. Airway Examination: normal oropharyngeal airway and neck mobility. Respiratory Examination: clear to auscultation. CV Examination: normal. Prophylactic Antibiotics: The patient does not require prophylactic antibiotics. Prior Anticoagulants: The patient has taken no anticoagulant or antiplatelet agents. ASA Grade Assessment: II - A patient with mild systemic disease. After reviewing the risks and benefits, the patient was deemed in satisfactory condition to undergo the procedure. The anesthesia plan was to use monitored anesthesia care (MAC). Immediately prior to administration of medications, the patient was re-assessed for adequacy to receive sedatives. The heart rate, respiratory rate, oxygen saturations, blood pressure, adequacy of pulmonary ventilation, and response to care were monitored throughout the procedure. The physical status of the patient was re-assessed after the procedure. After I obtained informed consent, the scope was passed under direct vision. Throughout the procedure, the patient's blood pressure, pulse, and oxygen saturations were monitored continuously. The colonoscope was introduced through the anus and advanced to the terminal ileum. The colonoscopy was performed without difficulty. The patient tolerated the procedure well. The quality of the bowel preparation was adequate. The terminal ileum, ileocecal valve, appendiceal orifice, and rectum were photographed. Scope In: 6:59:55 AM Scope Withdrawal Time 0 hours 14 minutes 48 seconds Scope Out: 7:19:22 AM Total Procedure Duration Time 0 hours 19 minutes 27 seconds Findings: Hemorrhoids were found on perianal exam. External and internal hemorrhoids were found during retroflexion. The hemorrhoids were Grade II (internal hemorrhoids that prolapse but reduce spontaneously). A 10 mm polyp was found in the splenic flexure. The polyp was sessile. The polyp was removed with a hot snare. Resection and retrieval were complete. Verification of patient identification for the specimen was done. Estimated blood loss was minimal. A 4 mm polyp was found in the descending colon. The polyp was sessile. The polyp was removed with a jumbo cold forceps. Resection and retrieval were complete. Verification of patient identification for the specimen was done. Estimated blood loss was minimal. An area of mildly congested mucosa was found in the recto-sigmoid colon, in the sigmoid colon and in the transverse colon. Biopsies were taken with a cold forceps for histology. Verification of patient identification for the specimen was done. Estimated blood loss was minimal. A few small-mouthed diverticula were found in the recto-sigmoid colon and sigmoid colon. Localized mild inflammation characterized by erosions was found in the terminal ileum. Biopsies were taken with a cold forceps for histology. Verification of patient identification for the specimen was done. Estimated blood loss was minimal. Impression: - Hemorrhoids found on perianal exam. - External and internal hemorrhoids. - One 10 mm polyp at the splenic flexure, removed with a hot snare. Resected and retrieved. - One 4 mm polyp in the descending colon, removed with a jumbo cold forceps. Resected and retrieved. - Congested mucosa in the recto-sigmoid colon, in the sigmoid colon and in the transverse colon. Biopsied. - Diverticulosis in the recto-sigmoid colon and in the sigmoid colon. - Mild inflammation was found in the ileum secondary to ileitis. Biopsied. Recommendation: - Discharge patient to home. - Resume previous diet. - Continue present medications. - Await pathology results. - Repeat colonoscopy in 5 years for surveillance. Procedure Code(s): --- Professional --- 60058, Colonoscopy, flexible; with removal of tumor(s), polyp(s), or other lesion(s) by snare technique 49958, 59, Colonoscopy, flexible; with biopsy, single or multiple CPT copyright 2021 [employer]. All rights reserved. The codes documented in this report are preliminary and upon shredded filler cutter operator review may be revised to meet current compliance requirements. Elie Galloway DO 03/31/2024 7:31:45 AM This report has been signed electronically. Number of Addenda: 0 Note Initiated On: 03/31/2024 6:58 AM
--- NOTE | 2024-03-31 07:32 | OP.CCLET_ITS ---
03/31/2024 No Primary Care Physician Re : Colonoscopy procedure for Baldev Esqueda Dear Care Physician This procedure was performed on Sunday, March 31, 2024. My impressions and recommendations are as follows: Impressions : - Hemorrhoids found on perianal exam. - External and internal hemorrhoids. - One 10 mm polyp at the splenic flexure, removed with a hot snare. Resected and retrieved. - One 4 mm polyp in the descending colon, removed with a jumbo cold forceps. Resected and retrieved. - Congested mucosa in the recto-sigmoid colon, in the sigmoid colon and in the transverse colon. Biopsied. - Diverticulosis in the recto-sigmoid colon and in the sigmoid colon. - Mild inflammation was found in the ileum secondary to ileitis. Biopsied. Recommendations : - Discharge patient to home. - Resume previous diet. - Continue present medications. - Await pathology results. - Repeat colonoscopy in 5 years for surveillance. My findings are described in the full procedure note, which is enclosed. If I can be of further assistance, please feel free to contact me at . Sincerely, Elie Galloway, 03/31/2024 7:31:45 AM This report has been signed electronically.
--- NOTE | 2024-03-31 11:10 | POSTOPAN2_ITS ---
Anesthesia Postop Eval I Sum Postop Eval Completion status Anesthesia document: Postop Eval 1 completed: Yes Anesthesia Postop Eval I Summary Anesthesia Postop Eval I Summary: Anesthesia Postop Eval I: Assessment Summary Airway patent Yes 03/31/24 07:25 [email or web address] [email or web address] Spontaneous unlabored Yes 03/31/24 07:25 DIETARY [email or web address] respirations Mental status nausea No 03/31/24 07:25 DIETARY COOK.[email or web address] Vomiting No 03/31/24 07:25 DIETARY [email or web address] Anesthesia Postop Eval I: Fluid Summary Crystalloid volume administer 40 03/31/24 07:25 DIETARY [email or web address] (ml) Colloids volume administered ( ml) Blood Product volume administered (ml) Total IV fluid infused 40 03/31/24 07:25 DIETARY [email or web address] Anesthesia Postop Eval I: Summary Notes Anesthesia Complication No 03/31/24 07:25 DIETARY COOK.CSIR Anesthesia Complication Comment: Post-operative progress note Anesthesia: Postop Eval II Evaluation Mental status: Awake Pain Level: 0 nausea: No Vomiting: No
--- NOTE | 2024-03-31 11:10 | PCM.POSTANE2 ---
Anesthesia Postop Eval I Sum Postop Eval Completion status Anesthesia document: Postop Eval 1 completed: Yes Anesthesia Postop Eval I Summary Anesthesia Postop Eval I Summary: Anesthesia Postop Eval I: Assessment Summary Airway patent Yes 03/31/24 07:25 FAMILY [email or web address] Spontaneous unlabored Yes 03/31/24 07:25 FAMILY [email or web address] respirations Mental status nausea No 03/31/24 07:25 FAMILY [email or web address].CSIR Vomiting No 03/31/24 07:25 FAMILY [email or web address] Anesthesia Postop Eval I: Fluid Summary Crystalloid volume administer 40 03/31/24 07:25 FAMILY [email or web address] (ml) Colloids volume administered ( ml) Blood Product volume administered (ml) Total IV fluid infused 40 03/31/24 07:25 FAMILY [email or web address] Anesthesia Postop Eval I: Summary Notes Anesthesia Complication No 03/31/24 07:25 FAMILY [email or web address] Anesthesia Complication Comment: Post-operative progress note Anesthesia: Postop Eval II Evaluation Mental status: Awake Pain Level: 0 nausea: No Vomiting: No
== END 2024-03-31 08:34 | disposition home or self-care (01) ==
LOC: EN 05:28 → AC 05:29
PROVIDERS: Visit Provider Internal Medicine Gastroenterology
PROC: 0DJD8ZZ Inspection of Lower Intestinal Tract, Via Natural or Artificial Opening Endoscopic (ICD-10-PCS; CPT 45378; principal; 2024-03-31 06:25)
DX: Z12.11 Encounter for screening for malignant neoplasm of colon (principal); D12.3 Benign neoplasm of transverse colon; D12.4 Benign neoplasm of descending colon; K64.1 Second degree hemorrhoids; K57.30 Diverticulosis of large intestine without perforation or abscess without bleeding; K64.4 Residual hemorrhoidal skin tags; K52.9 Noninfective gastroenteritis and colitis, unspecified; K62.5 Hemorrhage of anus and rectum; K29.80 Duodenitis without bleeding; K44.9 Diaphragmatic hernia without obstruction or gangrene; K30 Functional dyspepsia; F17.210 Nicotine dependence, cigarettes, uncomplicated
CPT/HCPCS: 45385; 45380; 43239; 88305; 88312; A4216; J2405; J3490

== ENCOUNTER 2025-04-26 08:57 | Emergency (ER) | payer OTHER, SELFPAY ==
[2025-04-26 08:57] VITALS: BP 107/88; PULSE 55; RESP 18; TEMP 36.3; O2SAT 99; BMI 25.5
--- NOTE | 2025-04-26 09:07 | EKG12_ITS ---
Test Reason : CP
--- NOTE | 2025-04-26 09:08 | ED.VIS.CHEST ---
HPI History of Present Illness Chief Complaint: Chest Pain Detail of Chief Complaint: Chest pain Informant: patient Narrative Narrative: Patient presents to the emergency department complaint of chest pain that started couple hours ago. States he woke up feeling fine. He went to work and started moving around and developed sharp stabbing pain in the right chest. Hurts to take a deep breath. Denies recent travel or surgery. He is a smoker. He said similar pain in the past but just let it go. He has no heart history. No history of PE or DVT. PFSH PFSH Medical History Wears dentures Wears glasses Depression History of steroid therapy Arthritis Back pain Migraine headache Injury of head and neck History of GI bleed Smoker History of pain when walking Coma Chest pain Cholecystectomy planned Back injury Home Medications ?Medication ?Instructions ?Recorded ?Last Taken ?Type ascorbate calcium (vitamin C) 500 500 mg PO QDAY 03/01/24 04/25/25 History mg tablet multivitamin 1 tab PO QAM 03/01/24 04/24/25 History acetaminophen 500 mg capsule 1,000 mg PO Q6H PRN pain 04/26/25 04/25/25 History Allergy/AdvReac Type Severity Reaction Status Date / Time No Known Allergies Allergy Verified 04/26/25 08:59 Family History Mother Arthritis Hypertension Father Arthritis Bleeding disorder Heart disease Uncle Colon cancer Surgical History Hx of eye surgery H/O shoulder surgery H/O knee surgery History of cholecystectomy Social History household members: spouse Smoking Status: Current every day smoker tobacco type: cigarettes ROS ROS ED Review of Systems ROS Unobtainable: other Constitutional Constitutional ED: Reports lethargy; Denies chills, fever(s), sweats or weight loss Eyes Eyes: Denies blurry vision, change in vision or diplopia ENT ENT ED: Denies rhinorrhea or sore throat Cardiovascular Cardiovascular: Reports chest pain; Denies orthopnea or racing heartbeat Respiratory/Chest Respiratory/Chest: Denies cough, dyspnea, dyspnea on exertion, orthopnea or sputum Gastrointestinal Gastrointestinal: Denies abdominal pain, diarrhea, nausea or vomiting Genitourinary Genitourinary ED: Denies dysuria, hematuria or urinary frequency Musculoskeletal Musculoskeletal: Denies arthralgias, back pain, myalgias or neck pain Integumentary Denies abscess, Abrasions or rash Neurologic Neurologic: Denies headache(s) or weakness Psychiatric Psychiatric: Denies anxiety, depression or suicidal thoughts Endocrine Endocrinology: Denies polydipsia, polyphagia or polyuria Hematologic/Lymphatic Hematologic/Lymphatic: Denies easy bleeding, easy bruising or lymphadenopathy Allergic/Immunologic Allergic/Immunologic ED: Denies mouth swelling, tongue swelling or urticaria EXAM Physical Exam Const Vital Signs: 04/26/25 08:57 04/26/25 09:07 04/26/25 09:23 Temperature 97.4 F L Temperature Source Oral Pulse Rate 55 L Respiratory Rate 18 Respiratory Effort Normal Non-Labored Blood Pressure 107/88 H Blood Pressure Mean 94 Pulse Ox 99 Oxygen Delivery Method Room Air Room Air 04/26/25 10:18 04/26/25 11:24 Temperature Temperature Source Pulse Rate 41 L 44 L Respiratory Rate 16 16 Respiratory Effort Blood Pressure 131/85 H 125/76 H Blood Pressure Mean 100 92 Pulse Ox 100 99 Oxygen Delivery Method Room Air Room Air Positive well nourished and well developed General Appearance ED: well developed and NAD HEENT Reports TM's clear and moist mucous membranes normocephalic and atraumatic; Negative for trauma or tenderness Tympanic Membrane ED: Yes TM's clear Eyes PERRL and EOMs intact bilaterally General Eye ED: Negative for pale conjunctiva or scleral icterus Neck no lymphadenopathy, supple and no JVD General: Negative for tenderness Chest Wall inspection of chest normal and palpation of chest normal Chest Narrative: No pain with palpation of the chest wall. Chest: Negative for tenderness Resp normal respiratory effort and clear to auscultation bilaterally Effort and Inspection: Negative for respiratory distress or pain with movement Auscultation: Negative for rhonchi, wheezes or diminished lung sounds Cardio regular rate, regular rhythm, S1 normal heart sound, S2 normal heart sound and no murmurs Peripheral Pulses: pulses 2+ throughout GI normal to inspection, nondistended, normoactive bowel sounds, soft to palpation, non-tender, non-distended and no masses Back/Spine no CVA tenderness and no thoracic nor lumbar tenderness Extremity normal to inspection General Extremety ED: Negative for edema General Extremity: Negative for edema Neuro oriented x3, CN's II-XII intact bilaterally, no sensory deficits noted and gait normal Sensorium / Orientation: awake, alert, oriented to person, oriented to place and oriented to time Motor Exam: strength 5/5 throughout and strength abnormal Psych mental status grossly normal Skin no rashes or lesions noted and no wounds Heart Score History: Slightly/Non-Suspicious ECG: Normal Age: >45 - <65 years Risk Factors: 1 or 2 Risk Factors Troponin: </= Normal Limit Score: 2 MDM MDM MDM Narrative Medical decision making narrative: Patient presents with chest discomfort that is pleuritic and hurts to take a deep breath. No trauma. He had similar pains in the past. No PE risk factors other than smoking history. No heart history. In the differential would be PE versus pneumothorax or lung infection or chest wall pain. Pleurisy or costochondritis would be in the differential. I suspect less likely coronary artery disease. EKG obtained on arrival showed sinus bradycardia with rate of 53 bpm with no acute ST segment changes. CBC with differential showed a white count 7.0 with hemoglobin 15 and platelet count of 213. Chemistries unremarkable. Initial troponin was 6. 2-hour delta troponin was less than 6. His D-dimer was normal at less than 0.27. Chest x-ray obtained was normal. This point suspect possibly pleurisy. He was initially medicated with Toradol as well as some morphine and Zofran. He continues to have discomfort. His heart rate did at times drop into the 30s and 40s. He is asymptomatic with this. Suspect sinus bradycardia may be related to vagal response from pain versus related to morphine I gave him. I did repeat an EKG during the episodes of bradycardia and his heart rate was 39 and just showed marked sinus bradycardia with no other acute ST segment changes. I did discuss case with cardiology and given that he is essentially asymptomatic with this did not feel any further workup is indicated at this time and asked that he follow-up with his primary care physician. Patient advised to return if worsening pain, dizziness, syncope, or condition should worsen anyway. Lab Data Attestation: I reviewed the patient's lab results. Labs: Laboratory Results - last 24 hr 04/26/25 04/26/25 09:18 10:10 WBC 7.0 RBC 4.75 Hgb 15.1 Hct 43.4 MCV 91.4 MCH 31.8 MCHC 34.8 RDW Std Deviation 42.1 RDW Coeff of Elizabeth 12.7 Plt Count 213 MPV 9.4 Immature Gran % (Auto) 0.300 Neut % (Auto) 51.8 Lymph % (Auto) 38.1 [place] % (Auto) 7.5 Eos % (Auto) 1.7 Baso % (Auto) 0.6 Absolute Neuts (auto) 3.6 Absolute Lymphs (auto) 2.68 Nucleated RBC % 0 D-Dimer Quant (PE/DVT) < 0.27 L Sodium 138 Potassium 4.1 Chloride 103 Carbon Dioxide 25.4 Anion Gap 10 BUN 10 Creatinine 0.98 Estim Creat Clear Calc 86.28 Est GFR (MDRD) Non-Af 94 BUN/Creatinine Ratio 10.2 Glucose 137 H Calcium 9.3 Troponin T High Sens 6 Troponin T Hi Sens 2 Hr < 6 Radiography Diagnostic Testing: Clinical Impression(s) from Imaging Studies Chest X-Ray 04/26/25 09:35 IMPRESSION: No Acute Findings. Reading Location: [facility] 1 view chest x-ray obtained interpreted by myself as no evidence of infiltrate or pneumothorax or acute disease process. Radiology in agreement. EKG Initial EKG: Attestation: I personally reviewed and interpreted this EKG as follows: Comments: Sinus bradycardia with rate of 53 bpm with no acute ST segment changes Follow-up EKG: Attestation: I personally reviewed and interpreted this EKG as follows: Comments: Sinus bradycardia with rate of 39 bpm with no acute ST segment changes Discharge Plan Triage Chief Complaint: Chest Pain ED Provider: Burak Ribeiro Dx/Rx/DC Orders Clinical Impression: Chest pain, Bradycardia Instructions: ED Bradycardia, ED Chest Pain, Uncertain Cause, ED Pleurisy Prescriptions: No Action multivitamin Tablet 1 tab PO QAM ascorbate calcium (vitamin C) 500 mg tablet 500 mg PO QDAY acetaminophen 500 mg capsule 1,000 mg PO Q6H PRN (Reason: pain) Patient Comments: PT STATES HE TOOK 2000MG LAST NIGHT 04/25/25 Primary Care Provider: Care Physician,No Primary Referrals: Ethan Easton MD [Med Staff - Manager [facility]] - 3-5 Days Care Physician,No Primary [Primary Care Provider, Medical] Activity Restrictions/Additional Instructions: Take ibuprofen or naproxen for the pain. Print Language: Congolese Disposition Disposition: Home, Self Care
[2025-04-26] MEDS: 0.9% Normal Saline (1000mL) 1,000 ML 150 ML IV (09:16)
[2025-04-26 09:28] LABS: Hematocrit 43.4 % (40-54); Hemoglobin 15.1 g/dL (13.0-16.5); Immature Granulocytes Count 0.020 X10^3/uL (0.0-0.0); Mean Corp Hgb Conc 34.8 g/dL (32-36); Mean Corpuscular Volume 91.4 fL (80-94); Mean Platelet Vol. 9.4 fl (6.2-12.0); NRBC Flagged by Analyzer 0 % (0-5); Platelet Count 213 K/mm3 (150-450); RBC Distribution Width CV 12.7 % (11.6-14.6); RBC Distribution Width SD 42.1 fl (35.1-43.9); Red Blood Count 4.75 M/mm3 (4.6-6.2); White Blood Count 7.0 K/mm3 (4.4-11.0)
--- NOTE | 2025-04-26 09:35 | RAD_ITS ---
PROCEDURE: RAD/Chest 1 View (Portable)
[2025-04-26 09:56] LABS: Anion Gap 10 (5-15); BUN 10 mg/dL (4-19); BUN/Creat Ratio 10.2 RATIO (10-20); Calcium,Total 9.3 mg/dL (7.6-11.0); Carbon Dioxide 25.4 mmol/L (21.0-32.0); Chloride 103 mmol/L (98-108); Estimated Creatinine Clearance 86.28 ml/min (50-250); Glucose 137 mg/dL (70-99); Potassium 4.1 mmol/L (3.3-5.1); Troponin T High Sensitivity 6 ng/L (<=22)
[2025-04-26 10:18] VITALS: BP 131/85; PULSE 41; RESP 16; O2SAT 100
[2025-04-26 10:21] LABS: D-Dimer Quantitative (DVT/PE) < 0.27 FEU/ug/m (0.27-0.49)
--- NOTE | 2025-04-26 11:02 | CM.ED ---
Social work Reason for referral: no PCP/insurance Referral source: case find SW entered patient's room, introducing self and role at [facility]. Patient's parents at bedside; patient gave permission to speak in front of them. Patient confirmed lacking insurance and a PCP. SW provided resources of [facility] Provider Directory, [place] information, and how to apply for Medicaid. Patient accepted resources and denied further needs at this time. Janelle Jones, BUSHEL GIRL, UX SPECIALIST
[2025-04-26 11:17] LABS: Troponin T High Sens 2 HR < 6 ng/L (<=22)
[2025-04-26 11:24] VITALS: BP 125/76; PULSE 44; RESP 16; O2SAT 99
--- NOTE | 2025-04-26 11:28 | EKG12_ITS ---
Test Reason : Bradycardia
[2025-04-26 12:45] VITALS: BP 124/78; PULSE 43; RESP 18; TEMP 36.6; O2SAT 99
== END 2025-04-26 12:47 | disposition home or self-care (01) ==
PROVIDERS: Emergency Provider Emergency Medicine; Visit Provider Emergency Medicine
DX: R07.89 Other chest pain (principal); R00.1 Bradycardia, unspecified; F17.210 Nicotine dependence, cigarettes, uncomplicated
CPT/HCPCS: 71045; 80048; 84484; 85025; 85379; 93005; 96361; 96374; 96375; 99284; A4216; J2405